=== PATIENT | male | born 1960 | race Two or more races ===

== ENCOUNTER 2018-02-10 19:28 | Inpatient (IN) | payer BC ==
[~2018-02-10] VITALS: Ht 175.3 cm; Wt 113.2 kg
--- NOTE | 2018-02-10 19:33 | NUR ---
Called for triage, in restroom.
--- NOTE | 2018-02-10 19:50 | NUR ---
BIBSELF NONPRODUCTIVE COUGH W/ SOB X COUPLE WKS. COMPLETED ATB COURSE, NO RELIEF. PT AAOX4, RESPIRATIONS EVEN AND UNLABORED, DENIES ANY PAIN, NAD, PT ON MONITOR, VSS, PENDING ER PROVIDER EVAL
[2018-02-10] MEDS ORDERED: IPRATROPIUM NEB FS 0.5 MG/2.5 ML AMPUL.NEB NEB ONE (20:30)
[2018-02-10] MEDS ORDERED: ALBUTEROL FS 2.5 MG/3 ML VIAL.NEB NEB ONE (20:30)
[2018-02-10] MEDS ORDERED: IPRATROPIUM NEB FS 0.5 MG/2.5 ML AMPUL.NEB ONE (20:37)
[2018-02-10] MEDS ORDERED: ALBUTEROL FS 2.5 MG/3 ML VIAL.NEB ONE (20:37)
[2018-02-10 20:58] LABS: BASOPHILS # (AUTO) 0.1 /CMM (0.0-0.2); BASOPHILS % (AUTO) 1.3 % (0.0-2.0); EOSINOPHILS % (AUTO) 6.6 % (0.0-6.0); HEMATOCRIT 39 % (39-51); HEMOGLOBIN 12.9 g/dL (13.5-17.5); LYMPHOCYTES % (AUTO) 22.8 % (20.0-44.0); MEAN CORPUSCULAR HGB CONC 34 g/dl (31.0-36.0); MEAN CORPUSCULAR VOLUME 92 fL (80-96); MONOCYTES # (AUTO) 0.4 /CMM (0.1-1.30); MONOCYTES % (AUTO) 4.6 % (2.0-12.0); NEUTROPHILS # (AUTO) 5.6 /CMM (1.8-8.9); NEUTROPHILS % (AUTO) 64.7 % (43.0-81.0); PLATELET COUNT (AUTO) 363 /CMM (150-450); WHITE BLOOD COUNT (AUTO) 8.6 K/uL (4.3-11.0)
[2018-02-10 21:40] LABS: ALBUMIN 3.3 g/dL (3.4-5.0); BILIRUBIN,TOTAL 0.3 mg/dL (0.2-1.0); CREATININE 1.3 mg/dL (0.6-1.3); POTASSIUM 3.8 mmol/L (3.5-5.1)
[2018-02-10 21:43] LABS: CALCIUM, SERUM 8.3 mg/dL (8.5-10.1)
--- NOTE | 2018-02-10 21:53 | NUR ---
PT AMBULATED IN THE HALLWAY, O2 SAT AT 94-95% WHILE AMBULATING, PT DENIES SOB. HECTOR LARSEN MADE AWARE
--- NOTE | 2018-02-10 22:49 | NUR ---
REPORT GIVEN TO BIGG VELAZQUEZ FOR XIOMARA
[2018-02-10] MEDS ORDERED: ATOR20TA PO (22:54)
[2018-02-10] MEDS ORDERED: ASPI-1169 PO (22:54)
[2018-02-10] MEDS ORDERED: METO200T49 PO (22:54)
[2018-02-10] MEDS ORDERED: LOSA100T31 PO (22:54)
[2018-02-10] MEDS ORDERED: MINO10TA2 PO (22:54)
[2018-02-10] MEDS ORDERED: CARV25TA2 PO (22:54)
[2018-02-10] MEDS ORDERED: FURO-144 PO (22:54)
[2018-02-10] MEDS ORDERED: SPIR50TA5 PO (22:54)
--- NOTE | 2018-02-10 23:25 | NUR ---
VALVE MECHANICCREAM TESTER NOTES Patient came to unit via gurney. Alert, oriented x 4, ambulatory. Breathing even and unlabored. Not in any distress. Denies SOB as of this time. IV site in LAC g#20 intact and patent. No signs of infiltreation. On tele monitor, sinus rhythm 73. Patient had flu vaccine 2017 and had pneumonia vaccine 2016. No skin issues. Oriented to call browne, placed within easy reach. Bed in low, locked position. Will monitor accordingly
[2018-02-10 23:30] VITALS: BP 152/100
[2018-02-10] MEDS ORDERED: AZITHROMYCIN 250 MG in IV D5W 250 ML IV SCH (23:30)
[2018-02-10] MEDS ORDERED: PNEUMOCOCCAL 23-VAL P-SAC VAC 0.5 ML VIAL IM ONE (23:30)
--- NOTE | 2018-02-10 23:30 | NUR ---
PATIENT TRANSFERRED TO ROOM 314-2 VIA ACLS PROTOCOL
[2018-02-11] MEDS ORDERED: METF-442 PO (00:13)
--- NOTE | 2018-02-11 00:20 | NUR ---
[facility] NOTES GENERAL SURGEON Mary Lou Castellanos with patient right now
[2018-02-11] MEDS ORDERED: CEFTRIAXONE 1 G VIAL ONE (00:33)
[2018-02-11] MEDS: CEFTRIAXONE 1 G in IV D5W 50 ML IV SCH ×2 (00:40→22:54)
[2018-02-11] MEDS ORDERED: AZITHROMYCIN 500 MG VIAL ONE (01:09)
[2018-02-11] MEDS: AZITHROMYCIN 250 MG in IV D5W 250 ML IV SCH (01:37)
[2018-02-11 04:00] VITALS: BP 140/94
--- NOTE | 2018-02-11 06:36 | NUR ---
SAIL CUTTER CLOSING NOTES Patient sleeping in bed, easily arousable. Breathing even and unlabored, with equal chest rise and fall. No complaints of pain or discomfort as of this time. IV site in LAC g#20 intact and patent. All needs attended to. All due meds given as ordered. Will endorse XIOMARA to oncoming RN.
[2018-02-11 07:05] LABS: THYROID STIMULATING HORMONE 0.452 uIU/mL (0.358-3.74)
[2018-02-11 07:12] LABS: ALBUMIN 2.9 g/dL (3.4-5.0); BILIRUBIN,TOTAL 0.2 mg/dL (0.2-1.0); CALCIUM, SERUM 8.5 mg/dL (8.5-10.1); CREATININE 1.3 mg/dL (0.6-1.3); MAGNESIUM 1.9 mg/dL (1.8-2.4); PHOSPHORUS 3.8 mg/dL (2.5-4.9); POTASSIUM 3.8 mmol/L (3.5-5.1); TOTAL PROTEIN, SERUM 6.5 g/dL (6.4-8.2)
--- NOTE | 2018-02-11 07:15 | NUR ---
MSRN. PT RECEIVED A&0X3, AWAKE AND RESTING IN BED WITH T.V. PT TOLERATING ROOM AIR AND AUSCULTATED WITH R UL RHONCHI, OTHERWISE CLEAR AND WITHOUT RESP DISTRESS AND DENIES SOB AT THIS TIME. PT DENIES PAIN. PT WITH IVC AT L AC INTACT AND NS AT TKO. PT BED IN LOWEST LOCKED POSITION WITH HANDRAILSX2 AND CALL MESSINA WITHIN REACH. PT DENIES NEEDS AT THIS TIME. PT BRIEFED ON TODAY'S POC AND IS WITHOUT CONCERN OR COMPLAINT AT THIS TIME.
[2018-02-11 08:00] VITALS: BP 149/104
[2018-02-11] MEDS ORDERED: MINOXIDIL (10MG) 10 MG TABLET PO SCH (09:00)
[2018-02-11] MEDS: METFORMIN 500 MG TABLET PO SCH ×2 (10:06→16:09)
[2018-02-11] MEDS: SPIRONOLACTONE 25 MG TABLET PO SCH (10:07)
[2018-02-11] MEDS: CARVEDILOL 12.5 MG TABLET PO SCH ×2 (10:09→21:26)
[2018-02-11] MEDS: METOPROLOL SUCCINATE 50 MG TAB.SR.24H PO SCH (10:09)
[2018-02-11] MEDS: ASPIRIN 81 MG TAB.CHEW PO SCH (10:10)
[2018-02-11] MEDS: LOSARTAN POTASSIUM 50 MG TABLET PO SCH (10:10)
[2018-02-11] MEDS: OSELTAMIVIR PHOSPHATE 75 MG CAPSULE PO SCH (10:10)
[2018-02-11] MEDS: FUROSEMIDE 40 MG/4 ML VIAL IV SCH (10:25)
[2018-02-11] MEDS ORDERED: MINOXIDIL (2.5MG) 2.5 MG TABLET PO SCH (10:30)
--- NOTE | 2018-02-11 14:39 | NUR ---
MSRN. PT REMOVED IV, REPLACED L FA G20.
[2018-02-11] MEDS: IPRATROPIUM NEB FS 0.5 MG/2.5 ML AMPUL.NEB NEB PRN ×2 (15:03→20:43)
[2018-02-11] MEDS: ALBUTEROL FS 2.5 MG/3 ML VIAL.NEB NEB PRN ×2 (15:03→20:43)
[2018-02-11 16:00] VITALS: BP 148/97
[2018-02-11] MEDS: LACTOBACILLUS RHAMNOSUS GG 1 EACH CAP.SPRINK PO SCH (16:09)
--- NOTE | 2018-02-11 16:46 | NUR ---
Patient lives alone locally. He is ambulatory and independent with adl's. His pcp is Maxim Gill. No dc planning needs identified at this time. Addendum: 02/11/18 at 1646 by JAVIER DORSEY RN Amended: Links added.
--- NOTE | 2018-02-11 18:25 | NUR ---
MSRN. PT REMAINS A&0X3, AWAKE AND RESTING IN BED WITH T.V. PT TOLERATING ROOM AIR WITHOUT DISTRESS, IMPROVED SOB AFTER PRN WITH RT. PT DENIES PAIN. PT WITH NEW IVC AT L FA INTACT AND SL. PT BED IN LOWEST LOCKED POSITION WITH HANDRAILSX2 AND CALL MESSINA WITHIN REACH. ALL DAY NURSE DUTIES ATTENDED TO AND PT IS WITHOUT CONCERN OR COMPLAINT AT THIS TIME. WILL ENDORSE TO NIGHT NURSE AT BEDSIDE FOR XIOMARA.
--- NOTE | 2018-02-11 19:10 | NUR ---
MS RN NOTES Received patient sitting up in bed, watching TV, alert, oriented x 4. Breathing even and unlabored. Not in any distress. No SOB at this time. No complaints of pain of discomfort. Call browne within reach. Bed in low, locked position. Patient stable as endorsed by the AM RN. Will continue to monitor accordingly
[2018-02-11 20:00] VITALS: BP 149/98
[2018-02-11] MEDS ORDERED: ATORVASTATIN 10 MG TABLET PO SCH (22:00)
[2018-02-12] MEDS: AZITHROMYCIN 250 MG in IV D5W 250 ML IV SCH (00:19)
--- NOTE | 2018-02-12 06:48 | NUR ---
CLINICAL SCIENTIST CLOSING NOTES Patient sleeping in bed, easily arousable. Breathing even and unlabored, with equal chest rise and fall. No complaints of pain or discomfort as of this time. IV site in LFA g#20 intact and patent, S/L. Safety measures in place. All needs attended to. All due meds given as ordered. Will endorse XIOMARA to oncoming RN.
--- NOTE | 2018-02-12 07:22 | NUR ---
MSRN. PT RECEIVED A&0X3, AWAKE AND RESTING IN BED. PT TOLERATING ROOM AIR AND AUSCULTATED CLEAR THROUGHOUT AND WITHOUT RESP DISTRESS OR SOB. PT DENIES PAIN. PT WITH IVC AT L FA INTACT SALINE FLUSH PATENT. PT BED IN LOWEST LOCKED POSITION WITH HANDRAILSX2 AND CALL MESSINA WITHIN REACH. PT DENIES NEEDS AT THIS TIME. PT BRIEFED ON TODAY'S POC AND IS WITHOUT CONCERN OR COMPLAINT AT THIS TIME.
[2018-02-12 08:09] VITALS: BP 152/91
[2018-02-12] MEDS: LACTOBACILLUS RHAMNOSUS GG 1 EACH CAP.SPRINK PO SCH (09:15)
[2018-02-12] MEDS: OSELTAMIVIR PHOSPHATE 75 MG CAPSULE PO SCH (09:15)
[2018-02-12] MEDS: METFORMIN 500 MG TABLET PO SCH (09:15)
[2018-02-12] MEDS: SPIRONOLACTONE 25 MG TABLET PO SCH (09:15)
[2018-02-12] MEDS: ASPIRIN 81 MG TAB.CHEW PO SCH (09:16)
[2018-02-12] MEDS: LOSARTAN POTASSIUM 50 MG TABLET PO SCH (09:16)
[2018-02-12] MEDS: CARVEDILOL 12.5 MG TABLET PO SCH (09:16)
[2018-02-12] MEDS: METOPROLOL SUCCINATE 50 MG TAB.SR.24H PO SCH (09:17)
[2018-02-12 09:18] VITALS: BP 152/91
[2018-02-12] MEDS: FUROSEMIDE 40 MG/4 ML VIAL IV SCH (09:28)
[2018-02-12] MEDS: ALBUTEROL FS 2.5 MG/3 ML VIAL.NEB NEB PRN (09:41)
[2018-02-12] MEDS: IPRATROPIUM NEB FS 0.5 MG/2.5 ML AMPUL.NEB NEB PRN (09:41)
--- NOTE | 2018-02-12 11:23 | NUR ---
MSRN. PT PREPARED FOR D/C PER . PT A&0X3 AND TOLERATING ROOM AIR WITHOUT RESP DISTRESS OR SOB. PT DENIES PAIN. PT IVC REMOVED AND NAD. PT BRIEFED ON MEDICATIONS, EDUCATION AND PLAN OF CARE, PT WILL SCHEDULE OWN FOLLOW UP WITH PROPERTY INVESTOR; PT VERBALIZING UNDERSTANDING, RESOURCES AND INTENT TO FOLLOW D/C POC. PT DENIES FURTHER NEEDS AT THIS TIME. PT WITH ALL BELONGINGS AND DOCUMENT SIGNED. PT D/C WITH FAMILY FOR TRANSPORT. AMBULATORY EXIT. PT AND FAMILY LEFT WITHOUT CONCERN OR COMPLAINT AND GRATEFUL FOR CARE.
== END 2018-02-12 11:30 | disposition home or self-care (01) | DRG 193 ==
LOC: ER 19:29 → TELE 23:19 → MED 02-11 09:38
PROVIDERS: ADMIT Registered Nurse; ATTEND Internal Medicine
DX: J15.9 Unspecified bacterial pneumonia (principal); I50.33 Acute on chronic diastolic (congestive) heart failure; I11.0 Hypertensive heart disease with heart failure; E66.01 Morbid (severe) obesity due to excess calories; Z68.36 Body mass index [BMI] 36.0-36.9, adult; Z87.09 Personal history of other diseases of the respiratory system; J45.909 Unspecified asthma, uncomplicated; E11.9 Type 2 diabetes mellitus without complications; Z79.84 Long term (current) use of oral hypoglycemic drugs
CPT/HCPCS: 36415; 71045-TC; 80048-TC; 80053-TC; 80061-TC; 80076-TC; 83605-TC; 83735-TC; 83880; 84100-TC; 84443-TC; 84484-TC; 85025-TC; 87040-TC; 87081-TC; 93307-TC; 94760-TC; A4606; G0378; J0456; J0696; J1940; J7030; J7060; Z7610

== ENCOUNTER 2019-03-29 16:15 | Emergency (ER) | payer BC ==
[~2019-03-29] VITALS: Ht 175.3 cm; Wt 113.4 kg
[~2019-03-29 16:15] MED LIST: ASPI-1169 PO; ATOR20TA PO; CARV25TA2 PO; FURO-144 PO; LOSA100T31 PO; METF-442 PO; METO200T49 PO; MINO10TA2 PO; SPIR50TA5 PO
[2019-03-29] MEDS ORDERED: TRAMADOL HCL 50 MG TABLET PO ONE (17:30)
--- NOTE | 2019-03-29 17:36 | NUR ---
PT AAOX4. BIBSELF c/o left knee pain s/p hit the corner of the table yesterday and started yestrday 12/10. MD at bedside for eval. vss.
[2019-03-29 18:46] VITALS: BP 128/76
--- NOTE | 2019-03-29 18:46 | NUR ---
Patient discharged to home in stable condition. Written and verbal after care instructions given. Patient verbalizes understanding of instruction and rx. Pt wheeled out to his brother who was waiting outside. VSS.
== END 2019-03-29 18:47 | disposition home or self-care (01) ==
LOC: ER 16:20
DX: M25.562 Pain in left knee (principal); I11.0 Hypertensive heart disease with heart failure; I50.9 Heart failure, unspecified; J45.909 Unspecified asthma, uncomplicated; Z98.890 Other specified postprocedural states; Z60.2 Problems related to living alone; Z79.84 Long term (current) use of oral hypoglycemic drugs; Z79.899 Other long term (current) drug therapy; Z79.82 Long term (current) use of aspirin
CPT/HCPCS: 73564-TC